=== PATIENT | male | born 1990 | race Caucasian/White ===

== ENCOUNTER 2025-03-19 18:22 | Emergency (ER) | payer SELFPAY ==
[~2025-03-19] VITALS: Ht 167.6 cm; Wt 85.0 kg
[2025-03-19 18:32] VITALS: O2SAT 100
[2025-03-19 19:37] LABS: BASOPHILS % 0.4 % (0.0-2.0); EOSINOPHILS % 3.4 % (0.0-5.0); HEMATOCRIT. 48.9 % (42.0-52.0); HEMOGLOBIN. 16.4 g/dL (14.0-18.0); LYMPHOCYTES % 29.0 % (20.0-50.0); MONOCYTES % 8.6 % (2.0-8.0); NEUTROPHILS % 58.6 % (40.0-76.0); RED BLOOD CELL COUNT 5.80 mill/uL (4.7-6.1); RED CELL DISTRIBUTION WIDTH 14.5 % (11.6-14.6)
[2025-03-19 19:46] LABS: CREATININE 1.0 mg/dL (0.6-1.3)
[2025-03-19 19:47] LABS: UREA NITROGEN BLOOD 13 mg/dL (9-23)
[2025-03-19 19:48] LABS: ASPARTATE AMINOTRANSFERASE 30 IU/L (<34)
[2025-03-19 19:49] LABS: BILIRUBIN DIRECT 0.1 mg/dL (<=3.0); BILIRUBIN TOTAL 0.3 mg/dL (0.1-1.0); PROTEIN TOTAL 7.4 g/dL (6.0-8.3)
[2025-03-19 19:54] LABS: MEAN PLATELET VOLUME 8.9 fl (7.4-10.4)
[2025-03-19 19:55] LABS: PLATELET 225 x1000/uL (130-400)
[2025-03-20 00:26] VITALS: BP 142/103; PULSE 53; RESP 14; TEMP 36.5; O2SAT 99
== END 2025-03-20 00:31 | disposition home or self-care (01) ==
LOC: ER 18:23
DX: I10 Essential (primary) hypertension (principal); R55 Syncope and collapse
CPT/HCPCS: 36415; 80048; 80076; 85025; 93005; 99284